=== PATIENT | male | born 2000 | race Asian ===

== ENCOUNTER 2025-01-26 23:03 | Emergency (ER) | payer BC ==
[~2025-01-26] VITALS: Ht 165.1 cm; Wt 102.1 kg
[2025-01-27] MEDS ORDERED: SODI126M NS (00:45)
[2025-01-27] MEDS ORDERED: PANT40TA49 PO (00:45)
[2025-01-27] MEDS ORDERED: FAMO20TA8 PO (00:45)
[2025-01-27] MEDS ORDERED: FAMOTIDINE (20 MG) 20 MG TABLET ONE (00:58)
[2025-01-27] MEDS: FAMOTIDINE (20 MG) 20 MG TABLET PO ONE (01:02)
[2025-01-27] MEDS: SALINE NASAL SPRAY 0.65% 1 BOTTLE BOTTLE NS PRN (01:03)
[2025-01-27 01:05] VITALS: BP 121/71; TEMP 97.7; O2SAT 100
== END 2025-01-27 01:06 | disposition home or self-care (01) ==
LOC: ER 23:22
DX: R04.0 Epistaxis (principal); K29.70 Gastritis, unspecified, without bleeding; K21.9 Gastro-esophageal reflux disease without esophagitis; R53.83 Other fatigue; Z60.2 Problems related to living alone; Z20.822 Contact with and (suspected) exposure to COVID-19